=== PATIENT | female | born 1960 | race American Indian/Alaskan Native ===

== ENCOUNTER 2017-03-17 02:23 | Emergency (ER) | payer OTHER ==
[2017-03-17] MEDS ORDERED: ROCEPHIN IM ONE (07:41)
[2017-03-17] MEDS ORDERED: XYLOCAINE 1% MPF 5 mL INFILTRATI ONE (07:41)
--- NOTE | 2017-03-17 07:58 | Emergency Department Report ---
- General Chief Complaint: Sore Throat Stated Complaint: BODYACHE/SORE THROAT/COUGHING Time Seen by Provider: 03/17/17 07:31 Source: patient Mode of arrival: Ambulatory Limitations: No Limitations - History of Present Illness Initial Comments: Patient comes into the ER today with complaints of sore throat, nasal congestion , sneezing, body aches, chills. Patient states his symptoms started 3 days ago. Patient states that her doctor prescribed her some steroids but patient came in here today because she feels like she is getting worse. Patient states that it started with a sore throat and has progressed to the other symptoms. Patient denies any hemoptysis, abdominal pain, chest pain. MD Complaint: cough, sore throat, rhinorrhea, nasal congestion, sinus pain -: days(s) (3) - Related Data Home Medications Medication Instructions Recorded Confirmed Last Taken Celecoxib [celeBREX] 50 mg PO DAILY 03/17/17 03/17/17 1 Day Ago Rosuvastatin (Nf) [Crestor] 20 mg PO DAILY 03/17/17 03/17/17 1 Day Ago Previous Rx's Medication Instructions Recorded Last Taken Type Cefdinir 300 mg PO BID #120 ml 03/17/17 Unknown Rx Promethazine /Codeine 5 ml PO Q6H PRN #90 ml 03/17/17 Unknown Rx [Phenergan/Codeine 6.25-10 mg/5Ml] Allergies Allergy/AdvReac Type Severity Reaction Status Date / Time Penicillins Allergy Swelling Verified 03/17/17 02:35 azithromycin [From Zithromax] AdvReac Nausea Verified 03/17/17 02:34 ED Review of Systems ROS: Stated complaint: BODYACHE/SORE THROAT/COUGHING Other details as noted in HPI Constitutional: chills, fever Eyes: denies: eye pain, eye discharge, vision change ENT: throat pain, congestion. denies: ear pain, dental pain, hearing loss, epistaxis Respiratory: cough. denies: shortness of breath, wheezing Cardiovascular: denies: chest pain, palpitations Endocrine: no symptoms reported Gastrointestinal: denies: abdominal pain, nausea, diarrhea Genitourinary: denies: urgency, dysuria, discharge Musculoskeletal: denies: back pain, joint swelling, arthralgia Skin: denies: rash, lesions Neurological: denies: headache, weakness, paresthesias Psychiatric: denies: anxiety, depression Hematological/Lymphatic: denies: easy bleeding, easy bruising ED Past Medical Hx - Past Medical History Previous Medical History?: No - Surgical History Past Surgical History?: Yes Additional Surgical History: Rt Knee - Social History Smoking Status: Never Smoker Substance Use Type: None - Medications Home Medications: Home Medications Medication Instructions Recorded Confirmed Last Taken Type Cefdinir 300 mg PO BID #120 ml 03/17/17 Unknown Rx Celecoxib [celeBREX] 50 mg PO DAILY 03/17/17 03/17/17 1 Day Ago History Promethazine /Codeine 5 ml PO Q6H PRN #90 ml 03/17/17 Unknown Rx [Phenergan/Codeine 6.25-10 mg/5Ml] Rosuvastatin (Nf) [Crestor] 20 mg PO DAILY 03/17/17 03/17/17 1 Day Ago History ED Physical Exam - General Limitations: No Limitations General appearance: alert, in no apparent distress - Head Head exam: Present: atraumatic, normocephalic - Eye Eye exam: Present: normal appearance. Absent: conjunctival injection, periorbital swelling, periorbital tenderness - ENT ENT exam: Present: mucous membranes moist, TM's normal bilaterally, normal external ear exam, other (bilateral nasal mucosa redness and turbinates swelling. Mild to moderate amount of posterior pharynx erythematous and swelling.) - Neck Neck exam: Present: normal inspection, full ROM. Absent: tenderness, meningismus, lymphadenopathy - Respiratory Respiratory exam: Present: normal lung sounds bilaterally. Absent: respiratory distress, chest wall tenderness, decreased breath sounds - Cardiovascular Cardiovascular Exam: Present: regular rate, normal rhythm, normal heart sounds. Absent: systolic murmur, diastolic murmur, rubs, gallop - GI/Abdominal GI/Abdominal exam: Present: soft, normal bowel sounds. Absent: distended, tenderness, guarding - Extremities Exam Extremities exam: Present: normal inspection - Back Exam Back exam: Present: normal inspection - Neurological Exam Neurological exam: Present: alert, oriented X3, CN II-XII intact - Psychiatric Psychiatric exam: Present: normal affect, normal mood - Skin Skin exam: Present: warm, dry, intact, normal color. Absent: rash ED Course Vital Signs 03/17/17 02:29 Temperature 99.0 F Pulse Rate 99 H Respiratory 20 Rate Blood Pressure 144/72 [Right] O2 Sat by Pulse 100 Oximetry ED Medical Decision Making - Lab Data Rapid strep: Negative Throat culture sent to lab. - Medical Decision Making Patient is nontoxic and hemodynamically stable. The patient does have signs of a throat infection as well as sinus infection on physical exam. I will start patient on medications appropriately and patient is to follow back up with her primary care doctor if symptoms fail to resolve or worsen. Patient is in agreement with treatment plan the patient is stable for discharge. Critical care attestation.: If time is entered above; I have spent that time in minutes in the direct care of this critically ill patient, excluding procedure time. ED Disposition Clinical Impression: Pharyngitis, Sinusitis, Cough Disposition: - TO HOME OR SELFCARE Is pt being admited?: No Does the pt Need Aspirin: No Condition: Good Instructions: Pharyngitis (ED), Sinusitis (ED) Prescriptions: Cefdinir 300 mg PO BID #120 ml Promethazine /Codeine [Phenergan/Codeine 6.25-10 mg/5Ml] 5 ml PO Q6H PRN #90 ml PRN Reason: cough Referrals: PRIMARY CARE, [Primary Care Provider] - 3-5 Days Time of Disposition: 08:09
[2017-03-17 08:29] VITALS: BP 146/84
== END 2017-03-17 08:10 | disposition home or self-care (01) ==
LOC: ED 02:23
DX: J02.9 Acute pharyngitis, unspecified (principal); J32.9 Chronic sinusitis, unspecified; R05 Cough; Z88.0 Allergy status to penicillin; Z88.1 Allergy status to other antibiotic agents
CPT/HCPCS: 87116; 87430; 96372; 99282; J0696